=== PATIENT | male | born 1985 | race Caucasian/White ===

== ENCOUNTER 2022-12-22 19:16 | Emergency (ER) | payer BC, SELFPAY ==
[2022-12-22 19:20] VITALS: BP 148/95; PULSE 86; RESP 16; TEMP 36.5; O2SAT 100; BMI 22.9
--- NOTE | 2022-12-22 19:30 | CT_ITS ---
The [address] [address] Patient Name: ELAINA BABIN MRN: [id number] date: 1985 Sex: M Assigned Patient Location: ER Current Patient Location: Accession/Order Number: [id number] Exam Date: 12/22/2022 19:45 Report Date: 12/22/2022 20:09 At the request of: SADA MARKER Procedure: CT abdomen pelvis wo con EXAMINATION: CT ABDOMEN AND PELVIS WITHOUT IV CONTRAST CLINICAL HISTORY: Right flank pain TECHNIQUE: Non-IV contrast imaging of the abdomen and pelvis was performed using standard technique, scanning from just above the dome of the diaphragm to the symphysis pubis. Unenhanced imaging is limited for the evaluation of some intra-abdominal and pelvic pathology. All CT scans at this facility use dose modulation, iterative reconstruction, and/or weight based dosing when appropriate to reduce radiation dose to as low as reasonably achievable. Contrast: IV: None COMPARISON: CT abdomen and pelvis 08/03/2022 RESULT: Abdomen / Pelvis: Liver: Unremarkable. Biliary: The gallbladder is unremarkable. Spleen: No splenomegaly. Pancreas: Unremarkable. Adrenals: Normal. Kidneys: 2 mm nonobstructing right interpolar region calculus. No hydronephrosis. GI Tract: No bowel dilation. Normal appendix. No diverticulosis. Lymph Nodes: No lymphadenopathy. Mesentery/peritoneum: No ascites. Retroperitoneum: No mass. Vasculature: No abdominal aortic or iliac artery aneurysm. Pelvis: No mass or ascites. Urinary bladder is unremarkable. Bones/Soft Tissues: No acute abnormality. L4 limbus vertebra. Lower thorax: Unremarkable. CT/CT abdomen pelvis wo con IMPRESSION: 2 mm nonobstructing right interpolar region calculus. No hydronephrosis. Electronically authenticated by: JD STEWARD Date: 12/22/2022 20:09
--- NOTE | 2022-12-22 19:32 | PC.NURSE ---
patient states he has had right flank pain for 1 week, has history of kidney stones. states this morning he woke up and had itching at the tip of his penis, states it feels like its irritated on the inside , itching has continued to get worse with the pain. denies any burning, discharge, redness, swelling. denies any new sexual partners or known STD exposure. denies any blood in urine.
--- NOTE | 2022-12-22 19:43 | ED_ITS ---
HPI - Male Genitourinary General Chief complaint: Urogenital-Male Stated complaint: FLANK PAIN, TESTICULAR PAIN Time Seen by Provider: 12/22/22 19:20 Source: patient Mode of arrival: walk-in History of Present Illness HPI Narrative: This 37-year-old male with a history of kidney stones presents for evaluation of right-sided flank pain that has been present for approximately one week and a burning/itching/irritated sensation at the distal end of his penis that started earlier today. He was thinking this morning that he may have passed a kidney stone which irritated the end of his penis. He has not noticed any blood in his urine. He does not have any dysuria. He is sexually active but denies any penile discharge. He would like STD testing to be performed. He relayed to the male rn spine that he has had erectile dysfunction for the past several months. He denies that he has put anything in the end of his penis. He does not have any abdominal pain nausea or vomiting. He denies any fever. He denies any chest pain or shortness of breath. He has no pain in his testicles. History, physical and exam was performed with Betty ALAMO as medical resident Related Data Allergies Allergy/AdvReac Type Severity Reaction Status Date / Time No Known Drug Allergies Allergy Verified 12/22/22 19:25 Review of Systems ROS Status of ROS 10 or more systems reviewed and unremarkable except as noted in history and below [facility] Social History Smoking status: Current every day smoker Exam Narrative Exam Narrative: Nurses note and vital signs reviewed and patient is not hypoxic. Blood pressure is mildly elevated at 148/95 General: Tall thin adult male resting comfortably on the stretcher he appears well and in no apparent distress. Patient is resting comfortably on cart. Skin: Warm, dry, no pallor noted. There is no rash noted. Head: Normocephalic, atraumatic Eye: Normal conjunctiva, no drainage, EOMI. PERRL Ears, Nose, Mouth, and Throat: oral mucosa is moist. Nares patent. Mouth without vesicles. Ear canals patent. Tm's without Erythema Cardiovascular: Regular Rate and Rhythm, no murmur rub or gallop appreciated Respiratory: Patient is in no distress, no accessory muscle use, lungs are clear to auscultation, no wheezing, rales or rhonchi Back: Mild right sided CVAT GI: Normal bowel sounds, no tenderness to palpation, no masses appreciated. No rebound, guarding, or rigidity noted. : testicles are descended and non-tender, no inguinal lymphadenopathy, the urethral meatus is mildly erythematous, no penile discharge is appreciated Musculoskeletal: The patient has no evidence of calf tenderness, no pitting edema, symmetrical pulses noted bilaterally Neurological: A&O x4, normal speech Psychiatric: Cooperative Constitutional Vital Signs, click to edit/add: Last Vital Signs Temp 97.7 F 12/22/22 19:20 Pulse 86 12/22/22 19:20 Resp 16 12/22/22 19:20 BP 148/95 H 12/22/22 19:20 Pulse Ox 100 12/22/22 19:20 O2 Del Method Room Air 12/22/22 19:20 Course Vital Signs Vital signs: Vital Signs Temperature 97.7 F 12/22/22 19:20 Pulse Rate 86 12/22/22 19:20 Respiratory Rate 16 12/22/22 19:20 Blood Pressure 148/95 H 12/22/22 19:20 Pulse Oximetry 100 12/22/22 19:20 Oxygen Delivery Method Room Air 12/22/22 19:20 Temperature 97.7 F 12/22/22 19:20 Pulse Rate 86 12/22/22 19:20 Respiratory Rate 16 12/22/22 19:20 Blood Pressure 148/95 H 12/22/22 19:20 Pulse Oximetry 100 12/22/22 19:20 Oxygen Delivery Method Room Air 12/22/22 19:20 MDM - Male Genitourinary MDM Narrative Medical decision making narrative: This 37-year-old male presents for evaluation of urethral itching, burning and irritation. He has a history of kidney stones and also has some right-sided flank pain. Osmany states he has had the right-sided flank pain for approximately one week. Earlier today he started feeling the discomfort at the end of his penis. He thought he may have passed a kidney stone which causes some irritation. He is sexually active with one partner. He has not had any penile discharge, dysuria, hematuria or other urologic symptoms. 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 There was a small amount of erythema at the urethral meatus but no discharge noted. Urinalysis, CBC with differential, comprehensive metabolic profile and CT scan was ordered. Urinalysis is essentially normal with trace occult blood, he has a normal white count and hemoglobin. Electrolytes are normal with the exception of a glucose of 148. Gonorrhea and chlamydia testing of the urine are pending at this time. I offered the patient empiric treatment for gonorrhea and chlamydia and he accepted. He was treated with oral Zofran, 1 g of oral Zithromax and 250 mg of IM Rocephin. CT scan shows a 2 mm stone in the right kidney and is otherwise normal. He was medicated emergency department with ibuprofen as he declined any injections or an IV start. He will be discharged home with prescription for ibuprofen and doxycycline. I informed him that he will be called in 48-72 hours with the results of his GC and chlamydia testing if he does not hear he should call to request the results. He is in agreement with this plan. He'll be referred outpatient family medicine. Lab Data Labs: Lab Results 12/22/22 12/22/22 Range/Units 19:30 19:35 WBC 8.0 (4.0-11.0) 10^3/uL RBC 4.94 (4.70-6.10) 10^6/uL Hgb 15.1 (14.0-18.0) g/dL Hct 45.4 (42.0-54.0) % MCV 91.9 (80.0-94.0) fL MCH 30.6 (25.9-34.0) pg MCHC 33.3 (29.9-35.2) g/dL RDW 13.0 (11.0-15.0) % Plt Count 312 (150-450) 10^3/uL MPV 10.3 (9.5-13.5) fL Neut % (Auto) 55.7 (43.0-75.0) % Lymph % (Auto) 32.1 (20.5-60.0) % [place] % (Auto) 7.0 (1.7-12.0) % Eos % (Auto) 3.8 (0.9-7.0) % Baso % (Auto) 1.1 (0.2-2.0) % Neut # (Auto) 4.5 (1.4-6.5) 10^3/uL Lymph # (Auto) 2.6 (1.2-3.8) 10^3/uL [place] # (Auto) 0.6 (0.3-0.8) 10^3/uL Eos # (Auto) 0.3 (0.0-0.7) 10^3/uL Baso # (Auto) 0.1 (0.0-0.1) 10^3/uL Abs Immat Gran (auto) 0.02 (0.00-0.03) 10^3/uL Imm/Tot Granulo (auto) 0.3 (0.0-0.5) % Sodium 141 (136-145) mmol/L Potassium 3.5 (3.5-5.1) mmol/L Chloride 105 (98-107) mmol/L Carbon Dioxide 26.0 (21.0-32.0) mmol/L Anion Gap 13.5 BUN 13.0 (7.0-18.0) mg/dL Creatinine 1.11 (0.70-1.30) mg/dL Est GFR ( Amer) >60 (>=60) Est GFR (Non-Af Amer) >60 (>=60) BUN/Creatinine Ratio 11.7 Glucose 148 H (74-106) mg/dL Calcium 9.1 (8.5-10.1) mg/dL Total Bilirubin 0.3 (0.2-1.0) mg/dL AST 18 (15-37) U/L ALT 25 (16-63) U/L Alkaline Phosphatase 74 (46-116) U/L Total Protein 7.3 (6.4-8.2) g/dL Albumin 4.3 (3.4-5.0) g/dL Globulin 3.0 g/dL Albumin/Globulin Ratio 1.4 Urine Color Lt. yellow (YELLOW) Urine Clarity Clear (CLEAR) Urine pH 6.0 (5.0-9.0) Ur Specific [place] 1.025 (1.005-1.025) Urine Protein Negative (NEG/TRACE) mg/dL Urine Glucose (UA) Negative (NEGATIVE) mg/dL Urine Ketones Negative (NEGATIVE) mg/dL Urine Occult Blood Trace-i (NEGATIVE) Urine Nitrite Negative (NEGATIVE) Urine Bilirubin Negative (NEGATIVE) Urine Urobilinogen 0.2 (0.2-1.0) EU/dL Ur Leukocyte Esterase Negative (NEGATIVE) Discharge Plan Discharge Chief Complaint: Urogenital-Male Clinical Impression: Nongonococcal urethritis (SHALOM), Flank pain, Urethritis Patient Disposition: Home, Self-Care Time of Disposition Decision: 21:05 Condition: Good Instructions: Flank Pain (ED) Stand Alone Forms: Portal Instructions Referrals: Physician,Non-Staff, MD [Primary Care Provider] - 1 week
[2022-12-22 19:55] LABS: Basophils Absolute Auto 0.1 10^3/uL (0.0-0.1); Basophils Percent Auto 1.1 % (0.2-2.0); Eosinophils Absolute Auto 0.3 10^3/uL (0.0-0.7); Eosinophils Percent Auto 3.8 % (0.9-7.0); Hematocrit 45.4 % (42.0-54.0); Hemoglobin 15.1 g/dL (14.0-18.0); Immature Granulocytes Abs Auto 0.02 10^3/uL (0.00-0.03); Immature Granulocytes Pct Auto 0.3 % (0.0-0.5); Lymphocytes Absolute Auto 2.6 10^3/uL (1.2-3.8); Lymphocytes Percent Auto 32.1 % (20.5-60.0); Mean Corpuscular HGB Conc 33.3 g/dL (29.9-35.2); Mean Corpuscular Hemoglobin 30.6 pg (25.9-34.0); Mean Corpuscular Volume 91.9 fL (80.0-94.0); Mean Platelet Volume 10.3 fL (9.5-13.5); Monocytes Absolute Auto 0.6 10^3/uL (0.3-0.8); Neutrophils Absolute Auto 4.5 10^3/uL (1.4-6.5); Neutrophils Percent Auto 55.7 % (43.0-75.0); Platelet Count 312 10^3/uL (150-450); Red Blood Count 4.94 10^6/uL (4.70-6.10)
[2022-12-22 20:18] LABS: Alanine Aminotransferase 25 U/L (16-63); Albumin Globulin Ratio 1.4; Albumin Level 4.3 g/dL (3.4-5.0); Alkaline Phosphatase 74 U/L (46-116); Anion Gap 13.5; Aspartate Amino Transferase 18 U/L (15-37); BUN Creatinine Ratio 11.7; Bilirubin Total 0.3 mg/dL (0.2-1.0); Calcium 9.1 mg/dL (8.5-10.1); Chloride 105 mmol/L (98-107); Estimated GFR (African America >60 (>=60); Estimated GFR (Non-African Ame >60 (>=60); Glucose 148 mg/dL (74-106); Potassium 3.5 mmol/L (3.5-5.1); Sodium 141 mmol/L (136-145); Total Protein 7.3 g/dL (6.4-8.2)
[2022-12-22] MEDS: IBUPROFEN 600 MG TABLET PO (20:18)
[2022-12-22 20:38] LABS: Bilirubin Urine NEGATIVE (NEGATIVE); Blood Urine TRACE-I (NEGATIVE); Clarity Urine CLEAR (CLEAR); Color Urine LT. YELLOW (YELLOW); Glucose Urine UA NEGATIVE (NEGATIVE); Ketones Urine NEGATIVE (NEGATIVE); Leukocyte Esterase Urine NEGATIVE (NEGATIVE); Nitrite Urine NEGATIVE (NEGATIVE); Protein Urine NEGATIVE (NEG/TRACE); Specific Gravity Urine 1.025 (1.005-1.025); Urobilinogen Urine 0.2 EU/dL (0.2-1.0)
[2022-12-22] MEDS: CEFTRIAXONE 250 MG, WATER FOR INJECTION,STERILE 0.9 ML IM (21:23)
[2022-12-22] MEDS: ONDANSETRON 4 MG RAPDIS TABLET SL (21:23)
[2022-12-22] MEDS: AZITHROMYCIN 250 MG TABLET 1000 MG PO (21:36)
[2022-12-22 23:05] LABS: Bacteria Urine NONE SEEN #/HPF (NONE SEEN); Crystals Seen? None Seen #/HPF (None Seen); Mucus Urine NONE SEEN (NONE SEEN); RBC Urine 0-2 #/HPF (0-2); Squamous Epithelial Cell Urine RARE #/LPF (NONE/RARE); WBC Urine NONE SEEN #/HPF (NONE SEEN)
[2022-12-22 23:06] LABS: Cast Seen? NONE SEEN #/LPF (NONE SEEN); Urine Culture Indicated NO
[2022-12-24 22:07] LABS: Neisseria gonorrhoeae, NAA Negative (Negative)
== END 2022-12-22 21:43 | disposition home or self-care (01) ==
PROVIDERS: Emergency Provider Emergency Medicine
DX: N34.1 Nonspecific urethritis (principal); R10.9 Unspecified abdominal pain; F17.210 Nicotine dependence, cigarettes, uncomplicated
CPT/HCPCS: 36415; 74176; 80053; 81001; 85025; 87491; 87591; 96374; 99284

== ENCOUNTER 2023-05-02 19:54 | Emergency (ER) | payer BC, SELFPAY ==
[2023-05-02 19:59] VITALS: BP 126/87; PULSE 93; RESP 16; TEMP 36.7; O2SAT 98; BMI 23.4
--- NOTE | 2023-05-02 20:12 | ED_ITS ---
HPI - General Adult General Chief complaint: Upper Respiratory Infection Stated complaint: poss covid Time Seen by Provider: 05/02/23 20:01 Source: patient Mode of arrival: walk-in History of Present Illness HPI narrative: This 38-year-old male presents for evaluation of fevers chills and sweats that started yesterday. Today he noticed that he could not taste or smell. He is here for covid19 testing At the request of his job. This patient states that yesterday he was at work and started having chills and sweats. He went home and took Tylenol and drink some orange juice. He states that he woke up today and was feeling okay but got in his car and he has a strong air freshener into his car and could not smell it and put something in his mouth that he could not taste. He does admit to tobacco use. He denies any chest pain or shortness of breath. He states he has a coworker who recently had COVID but did not tell anybody. He has no nausea vomiting or diarrhea. He denies any sore throat, headache, neck pain or stiffness. He has an occasional dry cough but denies any chest pain or shortness of breath. He is not vaccinated. He states that he has had COVID in the past and his loss of taste and smell are familiar to him. Related Data Home Medications Medication Instructions Recorded Confirmed No Known Home Medications 05/02/23 05/02/23 Allergies Allergy/AdvReac Type Severity Reaction Status Date / Time No Known Drug Allergies Allergy Verified 05/02/23 20:03 Review of Systems ROS Status of ROS 10 or more systems reviewed and unremarkable except as noted in history and below [facility] Social History Smoking status: Current every day smoker Exam Narrative Exam Narrative: Nurses note and vital signs reviewed and patient is not hypoxic. He is afebrile with a normal pulse, normal blood pressure General: The patient appears well and in no apparent distress. Patient is resting comfortably on cart. Skin: Warm, dry, no pallor noted. There is no rash noted. Head: Normocephalic, atraumatic Eye: Normal conjunctiva, no drainage, EOMI. PERRL Ears, Nose, Mouth, and Throat: oral mucosa is moist. Nares patent. No posterior pharyngeal erythema or edema, no swelling of the tongue, uvula or pharyngeal soft tissues Cardiovascular: Regular Rate and Rhythm S1S2, no murmurs, rubs or gallops. Respiratory: Patient is in no distress, no accessory muscle use, lungs are clear to auscultation, no wheezing, rales or rhonchi Back: non-tender, no CVA tenderness bilaterally to percussion. GI: Normal bowel sounds, no tenderness to palpation, no masses appreciated. No rebound, guarding, or rigidity noted. Musculoskeletal: The patient has no evidence of calf tenderness, no pitting edema, symmetrical pulses noted bilaterally Neurological: A&O x4, normal speech Psychiatric: Cooperative Constitutional Vital Signs, click to edit/add: Last Vital Signs Temp 98.1 F 05/02/23 19:59 Pulse 93 H 05/02/23 19:59 Resp 16 05/02/23 19:59 BP 126/87 05/02/23 19:59 Pulse Ox 98 05/02/23 19:59 O2 Del Method Room Air 05/02/23 19:59 Course Vital Signs Vital signs: Vital Signs Temperature 98.1 F 05/02/23 19:59 Pulse Rate 93 H 05/02/23 19:59 Respiratory Rate 16 05/02/23 19:59 Blood Pressure 126/87 05/02/23 19:59 Pulse Oximetry 98 05/02/23 19:59 Oxygen Delivery Method Room Air 05/02/23 19:59 Temperature 98.1 F 05/02/23 19:59 Pulse Rate 93 H 05/02/23 19:59 Respiratory Rate 16 05/02/23 19:59 Blood Pressure 126/87 05/02/23 19:59 Pulse Oximetry 98 05/02/23 19:59 Oxygen Delivery Method Room Air 05/02/23 19:59 Medical Decision Making MDM Narrative Medical decision making narrative: This otherwise healthy 38-year-old male presents for evaluation requesting Covid 19 testing. He believes he was exposed at work. Yesterday while at work he started having chills and sweats. Today he states that he lost his sense of taste and smell. He is not vaccinated. His vital signs are stable. His physical exam is benign. He was afebrile emergency department. His lungs are clear. Posterior pharynx is normal in appearance. He has no chest pain or shortness of breath. He declined the need for any Tylenol or Motrin emergency department. He is not having any gastrointestinal symptoms. Covid testing and strep testing are negative. He was encouraged to wear a mask at work and get repeat Covid testing in the next 24-48 hours. Lab Data Labs: Lab Results 05/02/23 Range/Units 20:05 SARS-CoV-2 (PCR) Negative (NEGATIVE) Streptococcus Screen Negative Discharge Plan Discharge Chief Complaint: Upper Respiratory Infection Clinical Impression: Close exposure to COVID-19 virus, Chills with fever Patient Disposition: Home, Self-Care Time of Disposition Decision: 20:36 Condition: Good Prescriptions / Home Meds: No Action No Known Home Medications Instructions: Fever in Adults (ED), Face Coverings (Masks) and COVID-19 (ED) Additional Instructions: Use a face mask at work. Consider getting repeated Covid 19 testing in the next 24-48 hours. Drink plenty of fluids. Use Tylenol and ibuprofen as needed for fevers, chills and body aches. Stand Alone Forms: Portal Instructions Referrals: Physician,Non-Staff, MD [Primary Care Provider] - 1 week
[2023-05-02 20:21] LABS: Internal Control Within Normal Limits; Strep A Antigen Screen Negative
[2023-05-02 20:26] LABS: SARS-CoV-2 Ag NEGATIVE (NEGATIVE)
[2023-05-03 11:34] LABS: SARS-CoV-2 NAA NOT DETECTED (NOT DETECTE)
== END 2023-05-02 20:53 | disposition home or self-care (01) ==
PROVIDERS: Emergency Provider Emergency Medicine
DX: R50.9 Fever, unspecified (principal); Z20.822 Contact with and (suspected) exposure to COVID-19; F17.210 Nicotine dependence, cigarettes, uncomplicated
CPT/HCPCS: 87070; 87635; 87811; 87880; 99284

== ENCOUNTER 2023-06-08 00:23 | Emergency (ER) | payer BC, SELFPAY ==
[2023-06-08 00:27] VITALS: BP 152/95; PULSE 72; RESP 18; TEMP 36.6; O2SAT 99
--- OUTSIDE RECORDS SUMMARY | 2023-06-08 00:33 | XMS_ITS | CCD ---
Author Name Unknown Address [address] [place] [address] Organization [facility] Care Team Prov[facility] Manager Name Role Phone STEPHAN BUSTOS Attending Unavailable STEPHAN BUSTOS Admitting Unavailable HAY ., DR HAWTHORNE Consulting Unavailable [facility] Un[facility] ilable STEPHAN BUSTOS Consulting Unavailable MARKER ., DR TOMLIN Attending Unavailable MARKER ., DR TOMLIN Consulting Unavailable [facility] Unava ilable MARKER ., DR TOMLIN Admitting Unavailable KANDIS BIGGS Consulting Unavailable Problems Active Problems Problem Classification Problem Date Documented Da te Episodic/Chronic Abdominal pain (3 sources) Unspecified abdominal pain; Translations: [UNSPECIFIED ABDOMINAL PAIN] Onset: 08-03-2022 Episodic Calculus of urinary tract (1 source) Calculus of kidney; Translations: [CALCULUS OF KIDNEY] Onset: 08-05-2022 Episodic Other upper respiratory infections (1 source) Acute upper respiratory infection, unspecified; Translations: [ACUTE UP RESPIRATORY INFECTION UNS] Onset: 05-10-2022 Episodic Substance-related disorders (1 source) Nicotine dependence, cigarettes, uncomplicated; Translations: [NICOTINE DEPEND CIGARETTES UNCOMP] Onset: 08-05-2022 Chronic Unclassified (2 sources) COUGH, UNSPECIFIED; Translations: [COUGH, UNSPECIFIED] Onset: 05-10-2022 Unclassified (1 source) CONTACT W/AND (SUSP) EXPOS COVID-19; Translations: [CONTACT W/AND (SUSP) EXPOS COVID-19] Onset: 05-10-2022 Viral infection (1 source) Viral infection, unspecified; Translations: [VIRAL INFECTION UNSPECIFIED] Onset: 05-10-2022 Episodic Past or Other Problems Problem Classification Problem Date Documented Da te Episodic/Chronic Unclassified (1 source) COUGH, UNSPECIFIED; Translations: [COUGH, UNSPECIFIED] Onset: 05-09-2022 Results Test Name Value Interpretation Reference Range Facil ity CBC AUTO DIFFon 08-03-2022 BASO # 0.1 103/ul Normal 0.0-0.[address] [facility] Comment on above: Performed By: #### C BC #### [facility] [address] [address] [address] Jamar Nguyen Basophils/100 WBC (Bld) 0.6 % Normal 0.2-2.[address] [facility] Comment on above: Performed By: #### C BC #### [facility] [address] [address] [address] Jamar Nguyen EO # 0.3 103/ul Normal 0.0-0.[address] [facility] Comment on above: Performed By: #### C BC #### [facility] [address] [place] [address] Dr. Jamar Nguyen Eosinophils/100 WBC (Bld) 1.2 % Normal 0.9-7.[address] [facility] Comment on above: Performed By: #### C BC #### [facility] [address] [place] [address] Dr. Jamar Nguyen Erythrocyte distribution width (RBC) [Ratio] 12.7 % Normal 11.0-15.[address] [facility] Comment on above: Performed By: #### C BC #### [facility] [address] [place] [address] Dr. Jamar Nguyen Hematocrit (Bld) [Volume fraction] 43.8 % Normal 42.0-54.[address] [facility] Comment on above: Performed By: #### C BC #### [facility] [address] [place] [address] Dr. Jamar Nguyen Hemoglobin (Bld) [Mass/Vol] 14.7 g/dL Normal 14.0-18.0 [facility] Comment on above: Performed By: #### C BC #### [facility] [address] [place] [address] Dr. Jamar Nguyen IG # 0.12 10e3/ul Critically high 0.00-0.03 [facility] Comment on above: Performed By: #### C BC #### [facility] [address] [place] [address] Dr. Jamar Nguyen IG % 0.6 % Critically high 0.0-0.5 [facility] Comment on above: Performed By: #### C BC #### [facility] [address] [place] [address] Dr. Jamar Nguyen LYMPH # 2.2 103/ul Normal 1.2-3.[address] [facility] Comment on above: Performed By: #### C BC #### [facility] [address] [place] [address] Dr. Jamar Nguyen Lymphocytes/100 WBC (Bld) 10.3 % Critically low 20.5-60.[address] [facility] Comment on above: Performed By: #### C BC #### [facility] [address] [place] [address] Dr. Jamar Nguyen MANUAL DIFF REQ NO Normal [facility] Comment on above: Performed By: #### C BC #### [facility] [address] [place] [address] Dr. Jamar Nguyen MCH (RBC) [Entitic mass] 30.9 pg Normal 25.9-34.[address] [facility] Comment on above: Performed By: #### C BC #### [facility] [address] [place] [address] Dr. Jamar Nguyen MCHC (RBC) [Mass/Vol] 33.6 g/dL Normal 29.9-35.[address] [facility] Comment on above: Performed By: #### C BC #### [facility] [address] [place] [address] Dr. Jamar Nguyen MCV (RBC) [Entitic vol] 92.0 fL Normal 80.0-94.0 [facility] Comment on above: Performed By: #### C BC #### [facility] [address] [place] [address] Dr. Jamar Nguyen MONO # 1.1 103/ul Critically high 0.3-0.8 [facility] Comment on above: Performed By: #### C BC #### [facility] [address] [place] [address] Dr. Jamar Nguyen Monocytes/100 WBC (Bld) 5.0 % Normal 1.7-12.[address] [facility] Comment on above: Performed By: #### C BC #### [facility] [address] [place] [address] Dr. Jamar Nguyen NEUT # 17.6 103/ul Critically high 1.4-6.5 [facility] Comment on above: Performed By: #### C BC #### [facility] [address] [place] [address] Dr. Jamar Nguyen Neutrophils/100 WBC (Bld) 82.3 % Critically high 43.0-75.0 [facility] Comment on above: Performed By: #### C BC #### [facility] [address] [place] [address] Dr. Jamar Nguyen Platelet mean volume (Bld) [Entitic vol] 10.1 fL Normal 9.5-13.[address] [facility] Comment on above: Performed By: #### C BC #### [facility] [address] [place] [address] Dr. Jamar Nguyen PLT 295 103/ul Normal 150-450 [facility] Comment on above: Performed By: #### C BC #### [facility] [address] [place] [address] Dr. Jamar Nguyen RBC 4.76 106/ul Normal 4.70-6.10 [facility] Comment on above: Performed By: #### C BC #### [facility] [address] [place] [address] Dr. Jamar Nguyen WBC 21.4 103/ul Critically high 4.0-11.0 [facility] Comment on above: Performed By: #### C BC #### [facility] [address] [place] [address] ABD/PELVIS WO CONon 08-03 CT ABD/PELVIS WO CON EXAMINATION: CT ABD/PELVIS WO CON, 08/03/2022 1:54 AM EST HISTORY: CALCULUS OF KIDNEY COMPARISON: None. TECHNIQUE: CT scan of the abdomen and pelvis was performed without IV contrast. CT dose reduction technique was used, including Automated Exposure Control. FINDINGS: The visualized portions of the lung bases are clear. There is a small hiatal hernia. Abdomen: Please note that the sensitivity for detection of focal lesions or vascular disease is markedly reduced without intravenous contrast. The liver and spleen are unremarkable. There is no intra or extrahepatic biliary duct dilatation. The gallbladder is unremarkable. There are punctate nonobstructive right renal calculi. There is a 0.3 cm calculus in the distal right ureter with mild right hydroureter and hydronephrosis. The pancreas, adrenal glands, and bowel loops, including the appendix, are unremarkable. There is no mesenteric or retroperitoneal lymphadenopathy. Pelvis: The bladder and rectum are unremarkable. There is no iliac or inguinal lymphadenopathy. There is mild atherosclerotic disease. Bone windows show no aggressive osseous lesions. IMPRESSION: 1. There is a 0.3 cm calculus in the distal right ureter with mild right hydroureter and hydronephrosis. 2. Punctate nonobstructive right renal calculi. 3. Normal appendix. Electronically authenticated by: Christina BIGGS Date: 2022-08-03 03:[address] [facility] ER URINE PROFILEon 3 Bilirubin Ql (U) Negative Normal NEGATIVE [facility] Comment on above: Performed By: #### E ZULEIMA ICRO #### [facility] [address] [place] [address] Dr. Jamar Nguyen Clarity (U) CLEAR Normal CLEAR [facility] Comment on above: Performed By: #### E ZULEIMA UMICRO #### [facility] [address] [place] [address] Dr. Jamar Nguyen Color (U) YELLOW Normal YELLOW [facility] Comment on above: Performed By: #### E ZULEIMA UMICRO #### [facility] [address] [place] [address] Dr. Jamar Nguyen ERUAHD A micrscopic examination will be performed if indicated. Normal [facility] Comment on above: Performed By: #### E RUR UMICRO #### [facility] [address] [place] [address] Dr. Jamar Nguyen Glucose Ql (U) Negative Normal NEGATIVE [facility] Comment on above: Performed By: #### E RUR UMICRO #### [facility] [address] [place] [address] Dr. Jamar Nguyen Hemoglobin Ql (U) LARGE Abnormal NEGATIVE [facility] Comment on above: Performed By: #### TONI VANCERO #### [facility] [address] [place] [address] Dr. Jamar Nguyen Ketones Ql (U) Negative Normal NEGATIVE [facility] Comment on above: Performed By: #### ТАТЬЯНА VANCE #### [facility] [address] [place] [address] Dr. Jamar Nguyen LEUKOCYTES Negative Normal NEGATIVE [facility] Comment on above: Performed By: #### TONI VANCERO #### [facility] [address] [place] [address] Dr. Jamar Nguyen Nitrite Ql (U) Negative Normal NEGATIVE [facility] Comment on above: Performed By: #### ТАТЬЯНА VANCE #### [facility] [address] [place] [address] Dr. Jamar Nguyen pH (U) 5.5 [pH] Normal 5-[address] [facility] Comment on above: Performed By: #### ТАТЬЯНА VANCE #### [facility] [address] [place] [address] Dr. Jamar Nguyen SPEC GRAVITY >=1.030 Abnormal 1.005-<=1.025 [facility] Comment on above: Performed By: #### TONI VANCERO #### [facility] [address] [place] [address] Dr. Jamar Nguyen UA PROTEIN Negative Normal NEGATIVE/ TRACE [facility] Comment on above: Performed By: #### ТАТЬЯНА VANCE #### [facility] [address] [place] [address] Dr. Jamar Nguyen UR MICRO IND INDICATED Normal [facility] Comment on above: Performed By: #### ТАТЬЯНА VANCE #### [facility] [address] [place] [address] Dr. Jamar Nguyen Urobilinogen Qn (U) 0.2 {Silas'U}/dL Normal 0.2 - 1. [address] [facility] Comment on above: Performed By: #### E ТАТЬЯНА DEWEY #### [facility] [address] [place] [address] Dr. Jamar Nguyen PROF 14(COMP METB)on 023 Albumin [Mass/Vol] 4.5 g/dL Normal 3.4-5.0 [facility] Comment on above: Performed By: #### C MP #### [facility] [address] [place] [address] Dr. Jamar Nguyen Albumin/Globulin [Mass ratio] 1.6 {ratio} Normal [facility] Comment on above: Performed By: #### C MP #### [facility] [address] [place] [address] Dr. Jamar Nguyen ALP [Catalytic activity/Vol] 93 U/L Normal 46-[address] [facility] Comment on above: Performed By: #### C MP #### [facility] [address] [place] [address] Dr. Jamar Nguyen ALT [Catalytic activity/Vol] 45 U/L Normal 16-[address] [facility] Comment on above: Performed By: #### C MP #### [facility] [address] [place] [address] Dr. Jamar Nguyen Anion gap [Moles/Vol] 12.1 mmol/L Normal [facility] Comment on above: Performed By: #### C MP #### [facility] [address] [place] [address] Dr. Jamar Nguyen AST [Catalytic activity/Vol] 22 U/L Normal 15-[address] [facility] Comment on above: Performed By: #### C MP #### [facility] [address] [place] [address] Dr. Jamar Nguyen Bilirubin [Mass/Vol] 0.3 mg/dL Normal 0.2-1.[address] [facility] Comment on above: Performed By: #### C MP #### [facility] [address] [place] [address] Dr. Jamar Nguyen Calcium [Mass/Vol] 8.9 mg/dL Normal 8.5-10.1 [facility] Comment on above: Performed By: #### C MP #### [facility] [address] [place] [address] Dr. Jamar Nguyen Chloride [Moles/Vol] 108 mmol/L Critically high 98-[address] [facility] Comment on above: Performed By: #### C MP #### [facility] [address] [place] [address] Dr. Jamar Nguyen CO2 [Moles/Vol] 25.7 mmol/L Normal 21.0-32.0 [facility] Comment on above: Performed By: #### C MP #### [facility] [address] [place] [address] Dr. Jamar Nguyen Creatinine [Mass/Vol] 0.95 mg/dL Normal 0.70-1.[address] [facility] Comment on above: Performed By: #### C MP #### [facility] [address] [place] [address] Dr. Jamar Nguyen EGFR-AF [place] >60 Normal >=60 [facility] Comment on above: Performed By: #### C MP #### [facility] [address] [place] [address] Dr. Jamar Nguyen EGFR-NON AF [place]IZ[place] >60 Normal >=[address] [facility] Comment on above: Performed By: #### C MP #### [facility] [address] [place] [address] Dr. Jamar Nguyen Globulin (S) [Mass/Vol] 2.8 g/dL Normal [facility] Comment on above: Performed By: #### C MP #### [facility] [address] [place] [address] Dr. Jamar Nguyen Glucose [Mass/Vol] 129 mg/dL Critically high 74-106 [facility] Comment on above: Performed By: #### C MP #### [facility] [address] [place] [address] Dr. Jamar Nguyen Potassium [Moles/Vol] 3.8 mmol/L Normal 3.5-5.[address] [facility] Comment on above: Performed By: #### C MP #### [facility] [address] [place] [address] Dr. Jamar Nguyen Protein [Mass/Vol] 7.3 g/dL Normal 6.4-8.2 [facility] Comment on above: Performed By: #### C MP #### [facility] [address] [place] [address] Dr. Jamar Nguyen Sodium [Moles/Vol] 142 mmol/L Normal 136-145 [facility] Comment on above: Performed By: #### C MP #### [facility] [address] [place] [address] Dr. Jamar Nguyen Urea nitrogen [Mass/Vol] 26.0 mg/dL Critically high 7.0-18.[address] [facility] Comment on above: Performed By: #### C MP #### [facility] [address] [place] [address] Dr. Jamar Nguyen Urea nitrogen/Creatinine [Mass ratio] 27.4 mg/mg Normal [facility] Comment on above: Performed By: #### C MP #### [facility] [address] [place] [address] Dr. Jamar Nguyen URINE MICROSCOPIC ONLYon BACTERIA TRACE Abnormal NONE SEEN [facility] Comment on above: Performed By: #### Arlin DEWEY UMICRO #### [facility] [address] [place] [address] Dr. Jamar Nguyen Bacteria identified Cx Nom (U) NOT INDICATED Normal [facility] Comment on above: Performed By: #### Arlin DEWEY UMICRO #### [facility] [address] [place] [address] Dr. Jamar Nguyen CAST NONE SEEN Normal NONE SEEN [facility] Comment on above: Performed By: #### Arlin DEWEY UMICRO #### [facility] [address] [place] [address] Dr. Jamar Nguyen Crystals LM Nom (Urine sed) NONE SEEN Normal NONE SEEN [facility] Comment on above: Performed By: #### Arlin DEWEY UMICRO #### [facility] [address] [place] [address] Dr. Jamar Nguyen Epithelial cells LM Ql (Urine sed) RARE Normal NONE SEEN /RARE [facility] Comment on above: Performed By: #### E TONI DEWEYRO #### [facility] [address] [place] [address] Dr. Jamar Nguyen MUCOUS NONE SEEN Normal NONE SEEN [facility] Comment on above: Performed By: #### E ZULEIMA UMICRO #### [facility] [address] [place] [address] Dr. Jamar Nguyen RBC 0-2 Normal 0-2 [facility] Comment on above: Performed By: #### E ZULEIMA UMCONSUELORO #### [facility] [address] [place] [address] Dr. Jamar Nguyen WBC 0-2 Abnormal NONE SEEN [facility] Comment on above: Performed By: #### TONI VANCERO #### [facility] [address] [place] [address] Dr. Jamar Nguyen [facility] SARS-CoV-2 (COVID-19) RNA ALEX+probe Ql (Unsp spec) Not detected Normal NOT DETECTED [facility] Comment on above: Result Comment: When diagnostic testing is negative, the possibility of a false negative should be considered in the context of a patient's recent exposures and the presence of clinical signs and symptoms consistent with SARS-CoV-2. This test is not yet approved or cleared by the [place] FDA. When there are no FDA-approved or cleared tests available, and other criteria are met, FDA can make tests available under an emergency access mechanism called an Emergency Use Authorization (EUA). The EUA for this test is supported by the [place] of Health and Human Service's declaration that circumstances exist to justify the emergency use of in vitro diagnostics for the detection and/or diagnosis of the virus that causes COVID-19. This EUA will remain in effect for the duration of the COVID-19 declaration justifying emergency of IVDs, unless it is terminated or revoked by the FDA (after which the test may no longer be used). Performed By: #### C VDTBH #### [facility] [address] [address] [address] Jamar Nguyen INFLUENZA A AND B AGon 05-09 INFLUANEGH SEE BELOW Normal [facility] Comment on above: Result Comment: Nega tive for Flu A protein angiten. Infection due to Flu A cannot be ruled out. Flu A angiten in the sample may be below the detection limit of the test. Performed By: #### I NFLUAB #### [facility] [address] [address] [address] Jamar Nguyen INFLUBNEG SEE BELOW Normal [facility] Comment on above: Result Comment: Nega tive for Flu B protein antigen. Infection due to Flu B cannot be ruled out. Flu B antigen in the sample may be below the detection limit of the test. Performed By: #### I NFLUAB #### [facility] [address] [place] [address] Dr. Jamar Nguyen INFLUENZA A AG Negative Normal NEGATIVE SEE COMMENT [facility] Comment on above: Performed By: #### I NFLUAB #### [facility] [address] [place] [address] Dr. Jamar Nguyen INFLUENZA B AG Negative Normal NEGATIVE SEE COMMENT [facility] Comment on above: Performed By: #### I NFLUAB #### [facility] [address] [place] [address] Dr. Jamar Nguyen INTERNAL CONTROLS Within Normal Limits Normal Wi thin Normal Limits [facility] Comment on above: Performed By: #### I NFLUAB #### [facility] [address] [place] [address] Dr. Jamar Nguyen Encounters Encounter Date Encounter Type Care Provider Facility Start: 08-03-2022 End: 08-03-[address] SADA Cavazos Facility:[facility] Start: 05-09-2022 End: 05-09-2022 ambulatory STEPHAN BUSTOS Facility:[facility] Payers Date Payer Category Payer Unknown [id number] 1985 Unknown [id number] 1958 Unknown [id number] Summary Purpose Family History No Family History Records Found Advance Directives No Advanced Directives Records Found Additional Source Comments (unrecognized sect ion and content) No Status Records Found INFORMATION SOURCE (unrecogn ized section and content) DATE CREATED AUTHOR 08/06/2022 The [facility] FOR RECORDS PERTAINING TO PATIENTS WHO ARE OR HAVE BEEN ENROLLED IN A CHEMICAL DEPENDENCY/SUBSTANCEABUSE PROGRAM, SOME INFORMATION MAY BE OMITTED. This clinical summary was aggregated from multiple sources. Caution should be exercised in using it in the provision of clinical care. This summary normalizes information from multiple sources, and as a consequence, information in this document may materially change the coding, format and clinical context of patient data. In addition, data may be omitted in some cases. CLINICAL DECISIONS SHOULD BE BASED ON THE PRIMARY CLINICAL RECORDS. [facility] [employer] [facility]. provides no warranty or guarantee of the accuracy or completeness of information in this document.
--- NOTE | 2023-06-08 00:40 | ED_ITS ---
HPI - Nausea/Vomiting/Diarrhea General Chief complaint: Nausea/Vomiting/Diarrhea Stated complaint: FLU TYPE ISSUES Time Seen by Provider: 06/08/23 00:33 Source: patient Mode of arrival: walk-in History of Present Illness HPI Narrative: This 38 year old male presents for evaluation of nausea and diarrhea. She states that on New ' Paty he was not feeling well and had a fever of 103. That time he has had 2 days of diarrhea and nausea. He was at work tonight and stated he had to leave work so he called his boss. His boss told him to be checked for Covid and influenza. The patient is not having any chest pain or shortness of breath. He had 2 episodes of diarrhea today. He denies any body aches, headache or sore throat. He has no dizziness or syncope. He has not taken any medications today and was afebrile in the emergency department.He states that he would rather be safe than sorry and requests the testing that his boss and suggested. Related Data Home Medications Medication Instructions Recorded Confirmed No Known Home Medications 05/02/23 05/02/23 Allergies Allergy/AdvReac Type Severity Reaction Status Date / Time No Known Drug Allergies Allergy Verified 06/08/23 00:27 Review of Systems ROS Status of ROS 10 or more systems reviewed and unremark able except as noted in history and below [facility] Social History Smoking status: Current every day smoker Exam Narrative Exam Narrative: Nurses note and vital signs reviewed and patient is not hypoxic. Blood pressure is mildly elevated at 152/95, he is afebrile with a normal pulse General: The patient appears well and in no apparent distress. Patient is resting comfortably on cart, wearing a mask Skin: Warm, dry, no pallor noted. There is no rash noted. Head: Normocephalic, atraumatic Eye: Normal conjunctiva, no drainage, EOMI. PERRL Ears, Nose, Mouth, and Throat: oral mucosa is moist. Neck: supple, no meningeal signs Cardiovascular: Regular Rate and Rhythm S1S2, no murmurs, rubs or gallops Respiratory: Patient is in no distress, no accessory muscle use, lungs are clear to auscultation, no wheezing, rales or rhonchi Back: non-tender, no CVA tenderness bilaterally to percussion. GI: Normal bowel sounds, no tenderness to palpation, no masses appreciated. No rebound, guarding, or rigidity noted. Musculoskeletal: The patient has no evidence of calf tenderness, no pitting edema, symmetrical pulses noted bilaterally Neurological: A&O x4, normal speech Psychiatric: Cooperative Constitutional Vital Signs, click to edit/add: Last Vital Signs Temp 97.8 F 06/08/23 00:27 Pulse 72 06/08/23 00:27 Resp 18 06/08/23 00:27 BP 152/95 H 06/08/23 00:27 Pulse Ox 99 06/08/23 00:27 O2 Del Method Room Air 06/08/23 00:27 Course Vital Signs Vital signs: Vital Signs Temperature 97.8 F 06/08/23 00:27 Pulse Rate 72 06/08/23 00:27 Respiratory Rate 18 06/08/23 00:27 Blood Pressure 152/95 H 06/08/23 00:27 Pulse Oximetry 99 06/08/23 00:27 Oxygen Delivery Method Room Air 06/08/23 00:27 Temperature 97.8 F 06/08/23 00:27 Pulse Rate 72 06/08/23 00:27 Respiratory Rate 18 06/08/23 00:27 Blood Pressure 152/95 H 06/08/23 00:27 Pulse Oximetry 99 06/08/23 00:27 Oxygen Delivery Method Room Air 06/08/23 00:27 MDM - Nausea/Vomiting/Diarrhea MDM Narrative Medical decision making narrative: This 38-year-old male presents for evaluation of nausea and diarrhea with a fever 2 days ago Tmax 103. The patient states the symptoms started on Paty and he was able to go to work yesterday but at work tonight he just felt like crap. He called his boss and spoke to his who suggested he come to the emergency department to get checked out and to get COVID 19 and influenza testing. His vital signs are stable. He is afebrile here. He has not recently taken any medications. He had 2 episodes of diarrhea earlier today. He has not vomited but states at times he feels like he is going to. He was medicated emergency department with Zofran ibuprofen and Tylenol. He declined an IV. He tested negative for Influenza and positive for COVID 19. He will be given a note for work and anticipatory guidance for COVID 19 Lab Data Labs: Lab Results 06/08/23 Range/Units 00:36 SARS-CoV-2 (PCR) Positive A (NEGATIVE) Influenza Type A Ag Negative Influenza Type B Ag Negative Discharge Plan Discharge Chief Complaint: Nausea/Vomiting/Diarrhea Clinical Impression: COVID-19 Patient Disposition: Home, Self-Care Time of Disposition Decision: 01:08 Condition: Good Prescriptions / Home Meds: No Action No Known Home Medications Instructions: Droplet Precautions (ED), COVID-19 (Coronavirus Disease 2019) (ED), COVID-19: Slow the Coronavirus Spread (ED), Face Coverings (Masks) and COVID-19 (ED), How to Recover from COVID-19 at Home (ED) Stand Alone Forms: Portal Instructions Referrals: Physician,Non-Staff, MD [Primary Care Provider] - 1 week
[2023-06-08] MEDS: ONDANSETRON 4 MG RAPDIS TABLET SL (00:57)
[2023-06-08] MEDS: ACETAMINOPHEN 325 MG TABLET 650 MG PO (00:57)
[2023-06-08] MEDS: IBUPROFEN 600 MG TABLET PO (00:57)
[2023-06-08 01:03] LABS: Influenza Virus A Antigen Negative; Influenza Virus B Antigen Negative; Internal Control Within Normal Limits; SARS-CoV-2 Ag POSITIVE (NEGATIVE)
[2023-06-08 01:15] VITALS: BP 126/96
== END 2023-06-08 01:16 | disposition home or self-care (01) ==
PROVIDERS: Emergency Provider Emergency Medicine
DX: U07.1 COVID-19 (principal); F17.210 Nicotine dependence, cigarettes, uncomplicated
CPT/HCPCS: 87804; 87811; 99283; Q0162